=== PATIENT | male | born 1965 | race Caucasian/White ===

== ENCOUNTER 2019-03-23 17:10 | Emergency (ER) | payer BC ==
[2019-03-23 17:17] VITALS: BP 137/97
--- NOTE | 2019-03-23 18:01 | ED ---
Throat Pain/Nasal Congestion - HPI Summary HPI Summary: This patient is a 53 year old male presenting to [facility] with a chief complaint of sudden onset right visual problems hours [employer]. He states he has a decreased visual field in his right eye. 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 He states he is not in any pain. - History of Current Complaint Chief Complaint: EDEyeProblem Time Seen by Provider: 03/23/19 17:47 Hx Obtained From: Patient Onset/Duration: Lasting Hours PMH/Surg Hx/FS Hx/Imm Hx Endocrine/Hematology History: Denies: Hx Diabetes Cardiovascular History: Denies: Hx Coronary Artery Disease Sensory History: Reports: Hx Contacts or Glasses - readers Opthamlomology History: Reports: Hx Contacts or Glasses - readers Infectious Disease History: No Infectious Disease History: Denies: Traveled Outside the [place] in Last 30 Days Review of Systems Negative: Fever Positive: Other - Partial loss of vision in his right eye. All Other Systems Reviewed And Are Negative: Yes Physical Exam - Summary Physical Exam Summary: Appearance: Well appearing, no pain distress Skin: warm, dry, reflects adequate perfusion Head/face: normal Eyes: EOMI, RAFY. Cannot visualize finger in the right inferior medial field of vision. ENT: normal Neck: supple, non-tender Respiratory: CTA, breath sounds present Cardiovascular: RRR, pulses symmetrical Abdomen: non-tender, soft Musculoskeletal: normal, strength/ROM intact Neuro: normal, sensory motor intact, A&Ox3 Triage Information Reviewed: Yes Vital Signs On Initial Exam: Initial Vitals Temp Pulse Resp BP Pulse Ox 98.4 F 56 18 137/97 98 03/23/19 17:12 03/23/19 17:12 03/23/19 17:12 03/23/19 17:12 03/23/19 17:12 Vital Signs Reviewed: Yes Diagnostics - Vital Signs Vital Signs Temp Pulse Resp BP Pulse Ox 03/23/19 17:12 98.4 F 56 18 137/97 98 - Laboratory Lab Statement: Any lab studies that have been ordered have been reviewed, and results considered in the medical decision making process. EENT Course/Dx - Course Course Of Treatment: This patient is a 53 year old male presenting to [facility] with a chief complaint of sudden onset right visual problems hours [employer]. Physical exam revealed loss of vision in his right inferior medial field. Visual acuity test revealed 20/15 vision in his left eye, 20/20 vision in his right eye. Spoke to Dr. Machado, Opthamology, at 1806, who said to discharge him and he will see the patient at 1845 today rule out retinal detachment. This plan was discussed with the patient and he was agreeable with this plan. - Diagnoses Provider Diagnoses: Blurry vision, right eye, Vision loss, right eye Discharge - Sign-Out/Discharge Documenting (check all that apply): Patient Departure - Discharge Patient Received Moderate/Deep Sedation with Procedure: No - Discharge Plan Condition: Stable Disposition: HOME Patient Education Materials: Blurred Vision (ED) Referrals: Scott Machado MD [Medical Doctor] - As Soon As Possible Additional Instructions: See Dr. Machado at 6:45 PM today. - Attestation Statements Document Initiated by Scribe: Yes Documenting Scribe: Troy Castellanso Provider For Whom Franibe is Documenting (Include Credential): Mickey Gamino MD Scribe Attestation: I, Troy Castellanos, scribed for Mickey Gamino MD on 03/23/19 at 1805. Status of Scribe Document: Ready
== END 2019-03-23 18:16 | disposition home or self-care (01) ==
LOC: ED 17:10
DX: H53.8 Other visual disturbances (principal); H54.61 Unqualified visual loss, right eye, normal vision left eye
CPT/HCPCS: 99282